=== PATIENT | female | born 1985 | race Hispanic/Latino ===

== ENCOUNTER 2024-01-08 13:58 | Emergency (ER) | payer SELFPAY ==
[~2024-01-08] VITALS: Ht 147.3 cm; Wt 90.7 kg
[2024-01-08] MEDS ORDERED: BROMFED DM COU118 ML PO (17:03)
[2024-01-08] MEDS ORDERED: AZITHROMYCIN250 MG PO (17:03)
[2024-01-08 17:25] VITALS: PULSE 85; RESP 18; TEMP 98.9; O2SAT 98
[2024-01-08] MEDS: IBUPROFEN 600 MG TAB PO ONE (17:45)
== END 2024-01-08 17:25 | disposition home or self-care (01) ==
LOC: FSED 14:01
DX: R50.9 Fever, unspecified (principal); J02.0 Streptococcal pharyngitis; R05.9 Cough, unspecified; R91.8 Other nonspecific abnormal finding of lung field
CPT/HCPCS: 71046; 99283